=== PATIENT | female | born 1945 | race Caucasian/White ===

== ENCOUNTER 2016-07-20 03:55 | Inpatient (IN) | payer OTHER ==
[~2016-07-20] VITALS: Ht 149.9 cm; Wt 85.7 kg
[~2016-07-20 03:55] MED LIST: ASPIRIN CHILDRE81 MG PO; CALCIUM + D 6001 TAB PO; COZAAR50 M1 PO; DYAZIDE 25 MG-31 CAP PO; FENOFIBRATE145 MG PO; LISINOPRIL10 MG PO; NAPROXEN EC500 MG PO; OMEPRAZOLE D/R20 MG PO; PERCOCET 325 MG1 TA2 PO; RITE AID MELATON1 MG PO; SIMVASTATIN40 MG PO; VERAPAMIL HYDR240 MG PO; VITAMIN B121000 MC2 PO; VITAMIN D31000 IU PO; WOMEN'S MULTIVI1 TAB PO
--- NOTE | 2016-07-20 13:03 | Operative Report ---
Operative/Inv Procedure Report Surgery Date: 07/20/16 Name of Procedure: Custom right total knee arthroplasty Pre-Operative Diagnosis: Primary right knee osteoarthritis Post-Operative Diagnosis: Same Estimated Blood Loss: less than 50ml Surgeon/Worm Picker: PANCHO NAVARRO,Kvng PRETTY Anesthesia: block Implants: Confor[employer] custom total knee arthroplasty, 6 mm medial insert, size a lateral insert, 29 x 6 mm patella Drains: None Specimens: Femoral, tibial, patellar bone Microbiology: Urine Tourniquet: 62 minutes Complications: None Condition: Stable Operative Indication: Patient is a 70-year-old woman with a long history of bilateral knee pain. Treatment has included conservative measures including activity modification and medications. She had worsening symptoms that and interfere with normal activities of daily living. She wished to proceed with total knee arthroplasty after risks, benefits and expectations were discussed which included but were not limited to persistent knee pain, need for subsequent surgery, infection, DVT , injury to blood vessel or nerve, anesthesia risks Operative/Procedure Note Note: Patient was brought to the operating room and transferred to the operating table. The right lower extremity was prepped and draped in standard fashion. Preoperative IV antibiotics were given prophylactically. A standard anterior incision was made for anticipated medial parapatellar approach after the leg was elevated exsanguinated and the tourniquet was inflated to 300 mm of pressure. This incision was taken to the retinaculum. A medial retinacular approach was minimal extension into the quadriceps tendon was used to enter the knee. There was tricompartmental osteoarthritis with osteophyte formation. Remnants of the medial lateral meniscal tissues were excised. Remnants of the ACL was excised. Minimal dissection was taken medially mostly for exposure purposes. I then used the first jig for the femur and used the reamer to remove any remaining articular cartilage from the distal femur for proper sizing and proper subsequent bone cuts. The F1 jig was placed on the femur and the small reamer was used to complete this step. I then attached the F3c to the distal femur. It was pinned in place after confirming the flushness of the upper portion of the jig. I then removed the distal portion of this jig and performed my distal femoral cut. There was a flush cut without step off based on preoperative templating. I confirm that the cut was a flush cut with the cutting block. Prior to removal of the distal portion of the F3 see jig I did place 2 and holes for later F4 application. These were marked. I then removed the distal cutting jig and applied the F4 cutting jig in place over the previously drilled and removed pin sites. I made my anterior cut after confirming the position of this cut. I made my posterior cuts and my anterior chamfer cut. 2 lug hole drill holes were made and then I removed the F4 jig and applied the final chamfer cutting guide and made my posterior chamfer cuts. I was satisfied with the preparation of the femur and then I turned my attention to the tibia. I used the tibial resection jig applied to the anterior aspect of the tibia and locked in place. I marked the areas of necessary removal of articular cartilage or any remaining articular cartilage. There was no articular cartilage along the medial compartment. After removal of this articular cartilage down to bone I reapplied the tibial resection jig pin the cutting block in place and then switched to a on captured cutting guide as recommended by the preoperative templating model. I was satisfied with the orientation of the tibia with the tower pointing towards the second metatarsal and the center of the talus. After pinning this in place I protecting the soft tissues with soft tissue retractors and made my tibial cut. I felt that the tibial cut was slightly conservative and therefore I added an additional 2 mm cut to this in standard fashion. I applied my trials. The trial femur was applied. I then applied the tibial spacers. The lateral a was chosen. I took the knee out to full extension with good soft tissue tension. Good flexion and no evidence of mid flexion instability. I removed the trial components after measuring and cutting the appropriate thickness of the patella and restoring it with the 29 mm x 6 mm component after the 3 lug holes were drilled. Marked my rotation of tibia and then removed all instrumentation. Finished preparation of the tibia with the tibial punch after drilling through the collar. Again all his rotation was removed from the knee copious irrigation the knee followed. I then mixed cement the back table. Cement was applied to the dry clean bony surfaces of the tibia. The custom tibia was impacted in place and excess cement was removed with curettes. The definitive inserts were also applied matching the trials. The locking mechanism was confirmed and then I reduced the tibia behind the femur. This was followed by cement application to the distal femur the definitive custom femoral component was impacted in place and the excess cement was removed with curettes. Knee was taken out to full extension. Cement was applied to the dry clean bony surfaces of the patella. The 29 patella was impacted in place and excess cement was removed with a knife. As cement was hardening I did appear articular pericapsular injection of a cocktail which included ropivacaine with epinephrine and Toradol for postoperative pain and inflammation management. Once the cement was hardening took the knee through range of motion. Small pieces of excess cement removed with osteotome. I was satisfied with the full extension good stability in mid flexion and full flexion to gravity. There was no need for a lateral release which was also confirmed after the tourniquet was deflated at 62 minutes. Hemostasis was obtained. There was no need for a drain. After copious irrigation I started closing the medial parapatellar approach with interrupted #1 Vicryl sutures. Every level of closure was followed by copious irrigation. Subcutaneous tissues closed in 2 layers with 2- 0 Vicryl due to the depth of the wound and skin was closed running 3-0 Vicryl suture with the knee in flexion. Appropriate dressings were applied and patient was awakened and taken to recovery room in good condition. No intraoperative complications blood loss was less than 50 mL tourniquet time was 62 minutes Discharge Disposition: PACU
--- NOTE | 2016-07-20 13:46 | PN- Orthopedic ---
Subjective Subjective: Awake, alert post op no complaints at this time Denies any pain or nausea Objective Vital Signs and I&Os T98.4 HR 71 BP 116/69 RR 16 Sat 94% on 3LNC General: alert and oriented times three Chest: clear anteriorly bilaterally, RRR Abd: soft, good bs Ext: positive sensate, warm, no edema, good 5/5 TANNER BLE Wound: dressed, dry, ice pack in place Iverson catheter in place On Q Assessment/Plan Assessment/Plan 70 yo female s/p R TKR pain management On Q per anesthesia wean O2 PT WBAT Coumadin 5 mg ordered for today for dvt ppx - fu labs in am abx for 24 hrs post op Core Measures/Miscellaneous Iverson Catheter Date In: 07/20/16 Still Needed? Yes (24 hrs post op) Venous Thromboembolism VTE Risk Factors: Age > 40, Surgery VTE Contraindications: No Contraindications VTE Diagnosis: No Beta Ronen Is Beta Ronen a Home Med? No Antibiotics Is Patient on Antibiotics? Yes If Yes: prophylaxis (24 hrs post op)
[2016-07-20 14:15] VITALS: BP 118/80
--- NOTE | 2016-07-20 15:28 | Patient Discharge Instructions ---
Discharge Instructions General Discharge Information You were seen/treated for: RIGHT KNEE PAIN SECONDARY TO OSTEOARTHRITIS You had these procedures: RIGHT TOTAL KNEE REPLACEMENT Watch for these problems: Increasing pain despite the use of pain medication. Increasing redness, warmth, swelling. Drainage of any type from incision. Inability to bear weight on right leg. Fever greater than 101.5 degrees. Do not soak the wound: Yes No bath, but you may shower: Yes Other wound care: Keep wound clean and dry Special Instructions: Coumadin: You are taking a blood thinning medication called Coumadin. Another name for this medication is warfarin. The puropose of this medication is to protect you from the development of blood clots. The dose of this medication is based on blood work called INR. Your INR will be checked frequently. You will be taking this medication every day, but the dose may be different each day. Please await specific instructions regarding the appropriate dose of this medication prior to taking it. Diet Continue normal diet: Yes Recommended Diet: Regular Additional DIET Information: Advance as tolerated Activity Full Activity/No Limits: No Activity Self Limited: Yes Pounds, do NOT lift more than: 10 Additional ACTIVITY Info: Weight bear as tolerated Acute Coronary Syndrome Inclusion Criteria At DC or during hospital stay patient has or had the following: ACS DIAGNOSIS No Discharge Core Measures Meds if any: Prescribed or Continued at Discharge Meds if any: NOT Prescribed or Continued at Discharge Congestive Heart Failure Inclusion Criteria At DC or during hospital stay patient has or had the following: CHF DIAGNOSIS No Discharge Core Measures Meds if any: Prescribed or Continued at Discharge Meds if any: NOT Prescribed or Continued at Discharge Cerebrovascular accident Inclusion Criteria At DC or during hospital stay patient has or had the following: CVA/TIA Diagnosis No Discharge Core Measures Meds if any: Prescribed or Continued at Discharge Meds if any: NOT Prescribed or Continued at Discharge Venous thromboembolism Inclusion Criteria VTE Diagnosis No VTE Type NONE VTE Confirmed by (Test) NONE Discharge Core Measures - Per Current guidelines, there needs to be overlap - treatment for the first 5 days of Warfarin therapy. - If discharged on Warfarin prior to 5 days of - overlap therapy, the patient will need to be - assessed for post discharge needs including - *Post discharge parental anticoagulation - *Warfarin and/or parental anticoagulation education - *Follow up date to check INR post discharge At least 5 days overlap therapy as Inpatient No Meds if any: Prescribed or Continued at Discharge Note: Overlap Therapy is Warfarin and Anticoagulant Meds if any: NOT Prescribed or Continued at Discharge
--- NOTE | 2016-07-20 15:37 | Surgical Discharge Summary ---
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 Home Who Do You Live With? Spouse What is Your Primary Language? Palestinian Review of Systems: See H&P Hospital Course Course Attending Physician: PANCHO NAVARRO,MARIA DE JESUS Primary Care Physician: CHELSEY DELGADO MD Hospital Course: Saida was admitted to the hospital on 07/20/2016 for an elective right total knee replacement. She tolerated the procedure well and was transferred to a general surgical floor. There, her vital signs remaind stable and within normal limits and her neurovascular status remained intact. She voided spontaneously. Her diet was advanced and tolerated. Her pain was controlled with oral pain medications. She was evaluated and treated by physical therapy and was deemed appropriate for discharge to home with home services and home PT. Her pain was well controlled at the time of discharge. Allergies: Coded Allergies: Penicillins (Intermediate, HIVES 07/20/16) Iodinated Contrast Media - Oral and (UNKNOWN 07/20/16) Sulfa (Sulfonamide Antibiotics) (Intermediate, SICK TO STOMACH 07/20/16) Disposition Summary Disposition Principal Diagnosis: Right knee unilateral primary osteoarthritis Additional Diagnosis: none Discharge Disposition: SNF Discharge Instructions General Discharge Information Code Status: Full Code Patient's Diet: Regular, advance as tolerated Patient's Activity: Weight bear as tolerated Follow-Up Instructions/Appts: Follow up in office in 2 weeks from date of surgery Medications at Discharge Discharge Medications: Stop taking the following medications: Aspirin (Children's Aspirin) 81 MG TAB.CHEW ORAL DAILY Continue taking these medications: VERAPAMIL HCL (Verapamil ER) 240 MG TABLET.ER 1.5 Tablet ORAL DAILY Qty = 150 FENOFIBRATE NANOCRYSTALLIZED (Fenofibrate) 145 MG TABLET 1 Tablet ORAL DAILY Qty = 100 TRIAMTERENE/HYDROCHLOROTHIAZID (Dyazide 37.5-25 Capsule) 37.5 MG-25 MG CAPSULE 1 Capsule ORAL DAILY Simvastatin (Simvastatin) 40 MG TABLET 1 Tablet ORAL Every night Multivitamin, Minerals, and (Women's Multivitamin/Multimineral) 1 TAB TAB 1 Tablet ORAL DAILY Cyanocobalamin (Vitamin B12) 1,000 MCG TAB 1 Tablet ORAL DAILY Cholecalciferol (Vitamin D3) 1,000 IU TAB 1 Tablet ORAL DAILY Calcium/Vitamin D (Calcium + D) 600 MG/200 IU TAB 1 Tablet ORAL DAILY Melatonin ([facility] Melatonin) 1 MG TAB 1 Tablet ORAL DAILY Losartan Potassium (Cozaar) 50 MG TABLET 1 Tablet ORAL DAILY Start taking the following new medications: Warfarin Sodium (Coumadin) 5 MG TABLET 1 Tablet ORAL DAILY Qty = 30 No Refills Instructions: DOSE SUBJECT TO CHANGE DAILY, PLEASE OBTAIN SPECIFIC INSTRUCTIONS REGARDING DAILY DOSE Oxycodone HCl/Acetaminophen (Percocet 5-325 MG Tablet) 5 MG-325 MG TABLET 1-2 Tablet ORAL Q4-6H as needed for PAIN Qty = 36 No Refills Copies To: PANCHO NAVARRO,MARIA DE JESUS
[2016-07-20 15:58] VITALS: BP 106/56
[2016-07-20 17:57] VITALS: BP 120/64
[2016-07-20 20:01] VITALS: BP 126/70
[2016-07-21 00:07] VITALS: BP 110/56
[2016-07-21 04:18] VITALS: BP 116/68
--- NOTE | 2016-07-21 07:45 | PN- Orthopedic ---
See Addendum Subjective Subjective: Patient comfortable, no significant pain, no calf pain no chest pain or shortness of breath. She had nausea and vomiting postoperatively however this has resolved this morning. She has no voiced complaints. Objective Vital Signs and I&Os Vital Signs Date Time Temp Pulse Resp B/P B/P Pulse O2 O2 Flow FiO2 Mean Ox Delivery Rate 07/21 0418 98.8 73 18 116/68 93 Nasal Cannula 07/21 0007 98.1 68 18 110/56 92 Nasal Cannula 07/21 0000 Nasal 1.0L Cannula 07/20 2001 97.9 71 18 126/70 94 Nasal 1.0L Cannula 07/20 1757 97.5 54 20 120/64 94 Nasal 1.0L Cannula 07/20 1600 94 Nasal 1.0L Cannula 07/20 1558 74 18 106/56 94 Nasal 3.0L Cannula 07/20 1415 97.5 70 18 118/80 95 Nasal 3.0L Cannula 07/20 1415 95 Nasal 3.0L Cannula Intake & Output 07/21 0800 07/21 0000 07/20 1600 07/20 0800 07/20 0000 07/19 1600 Intake Total 400 Output Total 200 300 Balance -200 100 Intake, IV 300 Intake, Oral 100 Output, Urine 200 300 Patient 189 lb Weight Weight Reported by Patient Measurement Method Physical Exam: Well-developed well-nourished no apparent distress. HEENT: Atraumatic, extraocular motion intact Neck: Supple, no lymphadenopathy Respiratory: No respiratory distress Extremities: No edema RIGHT lower extremity dressing in place, Range of motion is 0-75 right knee Compression wrap in place. ALPS in place Neurovascularly intact distally Bilateral calves are supple, nontender. Neuro: Alert and oriented x3 Psych: Mood affect normal, normal memory normal judgment. Skin: Warm and dry, no rash on exposed skin Results Last 48 Hours of Labs: Labs pending this morning Assessment/Plan Assessment/Plan Postop day 1 status post right total knee arthroplasty. -Patient is comfortable, pain controlled, continue current pain regimen -On-Q to be discontinued tomorrow -Coumadin for DVT prophylaxsis, dose per INR, follow PT/INR results this morning -Labs pending for this morning -ALPS for DVT prophylaxis -GI prophylaxis -Out of bed with physical therapy, weightbearing as tolerated right lower extremity. -Dressing changed tomorrow by PA -dc junior -dc ivf Core Measures/Miscellaneous Junior Catheter Date In: 07/20/16 Venous Thromboembolism VTE Risk Factors: Age > 40, Surgery VTE Contraindications: No Contraindications VTE Diagnosis: No Beta Ronen Is Beta Ronen a Home Med? No Antibiotics Is Patient on Antibiotics? Yes If Yes: prophylaxis (24 hrs post op)
[2016-07-21 08:03] LABS: ABSOLUTE BASOPHIL COUNT 0 /CUMM (0.0-0.2); ABSOLUTE EOSINOPHIL COUNT 0 /CUMM (0.0-0.7); ABSOLUTE GRANULOCYTE CT 13.9 /CUMM (1.4-6.5); ABSOLUTE LYMPH COUNT 0.9 /CUMM (1.2-3.4); BASOPHIL % 0 % (0.0-2.0); EOSINOPHIL % 0 % (0-5); GRANULOCYTE % 88.1 % (42.2-75.2); HEMATOCRIT 33.4 % (37-47); MEAN CORPUSCULAR HGB 31.8 PG (27.0-31.0); MEAN CORPUSCULAR VOLUME 93.3 FL (81.0-99.0); MEAN PLATELET VOLUME 9.8 FL (7.4-10.4); PLATELET COUNT 196 /CUMM (130-400); RBC DISTRIBUTION WIDTH 13.9 % (11.5-14.5); RED BLOOD CELL CT 3.58 /CUMM (4.20-5.40)
[2016-07-21 08:25] LABS: PT 12.5 SEC (9.4-12.5)
[2016-07-21 09:01] LABS: WHITE BLOOD CELL COUNT 15.8 /CUMM (4.8-10.8)
[2016-07-21 10:28] VITALS: BP 130/60
[2016-07-21 11:56] VITALS: BP 118/60
[2016-07-21 14:08] VITALS: BP 120/80
[2016-07-21 23:34] VITALS: BP 116/74
[2016-07-22 06:45] VITALS: BP 118/72
[2016-07-22 07:57] LABS: ABSOLUTE BASOPHIL COUNT 0.1 /CUMM (0.0-0.2); ABSOLUTE EOSINOPHIL COUNT 0.2 /CUMM (0.0-0.7); ABSOLUTE GRANULOCYTE CT 6.8 /CUMM (1.4-6.5); ABSOLUTE LYMPH COUNT 1.2 /CUMM (1.2-3.4); BASOPHIL % 0.6 % (0.0-2.0); EOSINOPHIL % 2.4 % (0-5); GRANULOCYTE % 73.2 % (42.2-75.2); HEMATOCRIT 34.5 % (37-47); MEAN CORPUSCULAR HGB 31.5 PG (27.0-31.0); MEAN CORPUSCULAR HGB CONC 33.5 G/DL (33.0-37.0); MEAN CORPUSCULAR VOLUME 94.1 FL (81.0-99.0); MEAN PLATELET VOLUME 10.2 FL (7.4-10.4); PLATELET COUNT 183 /CUMM (130-400); RBC DISTRIBUTION WIDTH 13.7 % (11.5-14.5); RED BLOOD CELL CT 3.67 /CUMM (4.20-5.40); WHITE BLOOD CELL COUNT 9.3 /CUMM (4.8-10.8)
--- NOTE | 2016-07-22 08:03 | PN- Orthopedic ---
See Addendum Subjective Subjective: Patient doing well, no complaints at present. Pain managed. On Q just removed. No chest pain, SOB, difficulty breathing. No nausea and vomitting. Passing flatus, voiding, no bm. Has been oob ambulating. No stairs yet. Anticipates that today with PT. Anticipating dc to home tomorrow. Objective Vital Signs and I&Os Vital Signs Date Time Temp Pulse Resp B/P B/P Pulse O2 O2 Flow FiO2 Mean Ox Delivery Rate 07/22 0645 98.8 61 20 118/72 94 Room Air 07/21 2334 98.7 62 20 116/74 91 Room Air 07/21 1408 98.8 65 20 120/80 93 Room Air 07/21 1156 98.8 63 20 118/60 93 Room Air 07/21 1028 98.7 62 20 130/60 93 Room Air 07/21 0827 73 120/68 07/21 0825 73 120/68 Intake & Output 07/22 1600 07/22 0800 07/22 0000 07/21 1600 07/21 0800 07/21 0000 Intake Total 120 700 400 Output Total 200 300 Balance 120 500 100 Intake, IV 600 300 Intake, Oral 120 100 100 Number 0 Bowel Movements Output, Urine 200 300 Physical Exam: General: AAO x3, no acute distress Cardiac: RRR, s1s2 Pulm: C TA bilaterally Abdomen: Non-tender, non-distended Extremies: Neurovascular intact, dressing dry, calves soft and non-tender bilaterally Dressing: Taken down, skin edges well approximated, steristrips dry and intact, no excessive redness, warmth, swelling. Clean dry dressing reapplied. Assessment/Plan Assessment/Plan This is a 70 year old, POD 2. s/p R TKR -Continue current pain regimen -OOB with pt, ambulate, stairs -F/U am labs, INR, dose coumadin daily per INR, target INR 2-3 -Give bowel regimen today -Incentive spirometer encouraged -Plan for dc to home tomrrow -Will d/w Dr. Gimenez Core Measures/Miscellaneous Iverson Catheter Date In: 07/20/16 Venous Thromboembolism VTE Risk Factors: Age > 40, Surgery VTE Contraindications: No Contraindications VTE Diagnosis: No Beta Ronen Is Beta Ronen a Home Med? No Antibiotics Is Patient on Antibiotics? Yes If Yes: prophylaxis (24 hrs post op)
[2016-07-22 08:28] LABS: PT 22.6 SEC (9.4-12.5)
--- NOTE | 2016-07-22 12:51 | RADIOLOGY REPORT ---
EXAMINATION: XR KNEE, RIGHT CLINICAL INFORMATION: Status post right total knee arthroplasty. COMPARISON: Right knee MRI 05/25/2016 TECHNIQUE: Two views of the right knee. FINDINGS: Patient is status post cemented total knee arthroplasty. Components are in expected orientation. No fracture. Subcutaneous emphysema. IMPRESSION: The patient is status post total knee arthroplasty with components in expected orientation.
[2016-07-22 14:54] VITALS: BP 110/70
[2016-07-22 23:04] VITALS: BP 112/60
[2016-07-23 06:39] VITALS: BP 134/70
--- NOTE | 2016-07-23 07:54 | PN- Orthopedic ---
Subjective Subjective: Awake, alert Feels good this morning = no complaints Pain well controlled Ambulated with PT yesterday - able to take the stairs without difficulty Objective Vital Signs and I&Os Vital Signs Date Time Temp Pulse Resp B/P B/P Pulse O2 O2 Flow FiO2 Mean Ox Delivery Rate 07/23 0639 98.9 69 20 134/70 93 Room Air 07/22 2304 98.6 68 20 112/60 94 Room Air 07/22 1454 98.5 65 20 110/70 95 07/22 0947 64 146/80 07/22 0946 64 146/80 Intake & Output 07/23 0000 07/22 1600 07/22 0000 07/21 1600 Intake Total 515 426 0498 50 120 Output Total 300 Balance 579 473 4604 50 120 Intake, IV 10 0 Intake, Oral 071 224 3205 50 120 Number 0 0 0 Bowel Movements Output, Urine 300 Physical Exam: VSS, afebrile General: alert and oriented times three Chest: clear anteriorly bilaterally, RRR Abd: soft, good bs Ext: warm, no edema, positive sensate and good 5/5 TANNER BLE, no calf tenderness Wound: dressing dry, steri strips in place, no drainage Assessment/Plan Assessment/Plan 70 yo female pod 3 s/p R TKA plan to dc home today with home nursing and home PT fu labs coumadin per INR Continue current pain mgmt PT-WBAT Core Measures/Miscellaneous Iverson Catheter Date In: 07/20/16 Venous Thromboembolism VTE Risk Factors: Age > 40, Surgery VTE Contraindications: No Contraindications VTE Diagnosis: No Beta Ronen Is Beta Ronen a Home Med? No Antibiotics Is Patient on Antibiotics? Yes If Yes: prophylaxis (24 hrs post op)
[2016-07-23 08:20] LABS: PT 29.4 SEC (9.4-12.5)
[2016-07-23 08:36] LABS: ABSOLUTE BASOPHIL COUNT 0 /CUMM (0.0-0.2); ABSOLUTE EOSINOPHIL COUNT 0.4 /CUMM (0.0-0.7); ABSOLUTE GRANULOCYTE CT 5.3 /CUMM (1.4-6.5); ABSOLUTE LYMPH COUNT 1.6 /CUMM (1.2-3.4); ABSOLUTE MONOCYTE COUNT 0.9 /CUMM (0.10-0.60); BASOPHIL % 0.6 % (0.0-2.0); EOSINOPHIL % 5.2 % (0-5); GRANULOCYTE % 64.4 % (42.2-75.2); HEMATOCRIT 33.8 % (37-47); MEAN CORPUSCULAR HGB 31.4 PG (27.0-31.0); MEAN CORPUSCULAR HGB CONC 33.6 G/DL (33.0-37.0); MEAN CORPUSCULAR VOLUME 93.4 FL (81.0-99.0); PLATELET COUNT 193 /CUMM (130-400); RBC DISTRIBUTION WIDTH 13.8 % (11.5-14.5); RED BLOOD CELL CT 3.62 /CUMM (4.20-5.40); WHITE BLOOD CELL COUNT 8.2 /CUMM (4.8-10.8)
[2016-07-23 08:49] VITALS: BP 134/70
[2016-07-23] MEDS ORDERED: COUMADIN5 M2 PO (09:08)
[2016-07-23] MEDS ORDERED: PERCOCET 5-3251 EACH PO (09:08)
== END 2016-07-23 11:00 | disposition home health service (06) | DRG 470 ==
LOC: SDA 03:55 → 2NA 03:55 → ENRESERV 13:15 → 2NA 14:11 → ENPENDDIS 07-23 08:00 → 2NA 07-23 11:00
PROVIDERS: Physician Assistant; Physician Assistant Surgical; ADMIT Orthopaedic Surgery
PROC: 0SRC0J9 Replacement of Right Knee Joint with Synthetic Substitute, Cemented, Open Approach (ICD-10-PCS; principal; 2016-07-20)
DX: M17.11 Unilateral primary osteoarthritis, right knee (principal); I10 Essential (primary) hypertension; Z85.528 Personal history of other malignant neoplasm of kidney; Z85.72 Personal history of non-Hodgkin lymphomas; E78.5 Hyperlipidemia, unspecified; E66.9 Obesity, unspecified; Z68.38 Body mass index [BMI] 38.0-38.9, adult
CPT/HCPCS: 2NAP; 2NASP; 73560-RT; 82436; 87086; 88305; 97110-GO; 97116-GO; 97161-GP; 97530-GO; C1713; J0131; J0171; J1200; J1885; J2405; J2765; J2795; J3370; J7040